=== PATIENT | female | born 1955 | race Caucasian/White ===

== ENCOUNTER 2016-05-26 17:11 | Emergency (ER) | payer OTHER ==
[2015-04-20 10:58] VITALS: BMI 27.1
[~2016-05-26 17:11] MED LIST: ALDACTONE25 MG PO; AMITRIPTYLINE H50 MG PO; CYMBALTA30 MG PO; DILANTIN100 MG PO; FLUTICASONE PRO16 GM NASAL; HYDROCODON-ACE1 EAC7 PO; K-TAB10 MEQ PO; NICODERM C1 PATCH .1 TRANSDERM; NORVASC10 MG PO; PRAVASTATIN SOD10 MG PO; PROTONIX40 MG PO; SINGULAIR10 MG PO; TERAZOSIN HCL2 MG PO; XANAX1 MG PO; ZANAFLEX4 MG PO
[2016-05-26 18:02] LABS: BASOPHILS 0.1 % (0.0-2.0); EOSINOPHILS 0.1 % (0-7); HEMOGLOBIN 16.9 g/dL (12-16); IMMATURE GRANULOCYTES 0.5 % (0-5); LYMPHOCYTES 16.3 % (15-50); MCH 29.5 pg (26.0-34.0); MCHC 35.2 g/dL (31.0-37.0); MCV 83.9 fL (80.0-100.0); MEAN PLATELET VOLUME 10.2 fL (7.4-10.4); MONOCYTES 8.1 % (2-11); NEUTROPHILS 74.9 % (40-80); RBC 5.72 10x6/uL (4.00-5.40); RDW 12.9 % (11.5-14.5); WBC 18.8 10x3/uL (4.8-10.8)
[2016-05-26 18:08] LABS: PLATELET COUNT 357 10x3/uL (130-400)
[2016-05-26 18:17] LABS: ALBUMIN 5.2 g/dL (3.4-5.0); ANION GAP 18.6 mmol/L (8-16); BILIRUBIN - TOTAL 0.49 mg/dL (0.2-1.3); CALCIUM 10.9 mg/dL (8.5-10.1); CARBON DIOXIDE 31.7 mmol/L (21.0-32.0); CREATININE - SERUM 2.1 mg/dL (0.6-1.3); POTASSIUM - SERUM 3.3 mmol/L (3.5-5.1); PROTEIN - SERUM 9.8 g/dL (6.4-8.2)
[2016-05-26 20:57] LABS: UDS - AMPHET POSITIVE QUAL (NEGATIVE); UDS - BARB NEGATIVE QUAL (NEGATIVE); UDS - BENZO POSITIVE QUAL (NEGATIVE); UDS - COCAINE NEGATIVE QUAL (NEGATIVE); UDS - METH NEGATIVE QUAL (NEGATIVE); UDS - OPIATE NEGATIVE QUAL (NEGATIVE); UDS - PCP NEGATIVE QUAL (NEGATIVE); UDS - THC NEGATIVE QUAL (NEGATIVE)
[2016-05-26 21:13] LABS: APPEARANCE CLEAR (CLEAR); COLOR YELLOW (YELLOW); SPECIFIC GRAVITY 1.015 (1.005-1.020)
[2016-05-26 21:14] LABS: BILIRUBIN NEGATIVE (NEGATIVE); GLUCOSE NEGATIVE (NEGATIVE); KETONE NEGATIVE (NEGATIVE); LEUKOCYTE ESTERASE NEGATIVE (NEGATIVE); NITRITE NEGATIVE (NEGATIVE); PROTEIN 1+ mg/dL (NEGATIVE); UROBILINOGEN NORMAL (NORMAL)
== END 2016-05-26 22:47 | disposition home or self-care (01) ==
LOC: D.ER 17:11
PROVIDERS: Emergency Medicine; Physician Assistant Medical
DX: R19.7 Diarrhea, unspecified (principal); R11.10 Vomiting, unspecified; F41.9 Anxiety disorder, unspecified; F17.200 Nicotine dependence, unspecified, uncomplicated

== ENCOUNTER → 2016-08-21 09:17 | Outpatient (CLI) | payer MEDICARE, OTHER ==
[2015-04-20 10:58] VITALS: BMI 27.1
== END | disposition home or self-care (01) ==
LOC: D.NM 09:15
DX: E83.52 Hypercalcemia (principal)

== ENCOUNTER 2016-10-28 17:39 | Observation (INO) | payer MEDICARE ==
[~2016-10-28] VITALS: Ht 160 cm; Wt 70.5 kg
[2016-10-28 18:19] LABS: APPEARANCE CLEAR (CLEAR); BILIRUBIN NEGATIVE (NEGATIVE); COLOR COLORLESS (YELLOW); GLUCOSE NEGATIVE (NEGATIVE); KETONE NEGATIVE (NEGATIVE); LEUKOCYTE ESTERASE NEGATIVE (NEGATIVE); NITRITE NEGATIVE (NEGATIVE); PROTEIN NEGATIVE (NEGATIVE); UROBILINOGEN NORMAL (NORMAL)
[2016-10-28 19:16] LABS: BASOPHILS 0.1 % (0-2); EOSINOPHILS 1.2 % (0-7); HEMATOCRIT 36.8 % (36.0-48.0); HEMOGLOBIN 12.4 g/dL (12-16); IMMATURE GRANULOCYTES 0.2 % (0-5); LYMPHOCYTES 28.7 % (15-50); MCH 27.3 pg (26.0-34.0); MCHC 33.7 g/dL (31.0-37.0); MCV 81.1 fL (80.0-100.0); MEAN PLATELET VOLUME 9.8 fL (7.4-10.4); MONOCYTES 7.2 % (2-11); NEUTROPHILS 62.6 % (40-80); PLATELET COUNT 268 10x3/uL (130-400); RBC 4.54 10x6/uL (4.00-5.40)
[2016-10-28 19:29] LABS: ALBUMIN 4.5 g/dL (3.4-5.0); ALKALINE PHOSPHATASE 95 U/L (46-116); ALT (SGPT) 27 U/L (10-68); BILIRUBIN - TOTAL 0.42 mg/dL (0.2-1.3); CALC OSMOLALITY 253 mosm/kg (275-300); CALCIUM 9.5 mg/dL (8.5-10.1); CHLORIDE - SERUM 93 mmol/L (98-107); CREATININE - SERUM 0.8 mg/dL (0.6-1.3); GLUCOSE 93 mg/dL (74-106); POTASSIUM - SERUM 3.3 mmol/L (3.5-5.1); PROTEIN - SERUM 7.8 g/dL (6.4-8.2); SODIUM 127 mmol/L (136-145); UREA NITROGEN 9 mg/dL (7-18); eGFR NON AFRICAN AMERICAN 77 mL/min (90-120)
[2016-10-29] VITALS: BP 193/107
--- NOTE | 2016-10-29 00:25 | NUR ---
RECEIVED PT FROMER VIA W/C AAOX4 RESP UNLABORED SKIN W/D COLOR WNL IV OF NS PATENT TO LT HAND WITHOUT DIFFICULTY OCCLUSIVE DRSG INTACT SITE FREE OF REDNESS OR EDEMA NAD NOTED WILL CONTINUE TO MONITOR
[2016-10-29 00:29] VITALS: BP 193/107; Ht 160 cm; Wt 70.5 kg
--- NOTE | 2016-10-29 03:07 | NUR ---
RESTING QUIELTY EYES CLOSED RESP UNLABORED NAD NOTED
[2016-10-29 04:00] VITALS: BP 122/68
--- NOTE | 2016-10-29 07:21 | NUR ---
PT IN BED RESTING. EVEN AND UNLABORED RESPIRATIONS NOTED. WILL CONTINUE TO MONITOR.
[2016-10-29 08:34] VITALS: BP 131/74
--- NOTE | 2016-10-29 09:47 | NUR ---
PT STATES THAT HER "EYE IS SHRINKING" SHE ALSO STATES "THIS EYE (LEFT EYE) IS NICE AND PLUMP, BUT THIS EYE (RIGHT EYE) IS NOTHING BUT MUSH." UPON EXAMINATION NO SHRINKING NOTED. EYES EQUAL BILATERALLY. WILL CONTINUE TO MONITOR.
[2016-10-29 12:04] VITALS: BP 154/76
[2016-10-29 12:12] LABS: ANION GAP 9.8 mmol/L (8-16); CALCIUM 9.1 mg/dL (8.5-10.1); CARBON DIOXIDE 30.1 mmol/L (21.0-32.0); CREATININE - SERUM 1.1 mg/dL (0.6-1.3); POTASSIUM - SERUM 3.9 mmol/L (3.5-5.1)
[2016-10-29 16:00] VITALS: BP 134/91
--- NOTE | 2016-10-29 18:46 | NUR ---
Patient Name: JAQUAN GARCIA Admission Status: ER Accout number: [id number] Admission Date: 10-28-2016 : 1955 Admission Diagnosis: Attending: CELIO Current LOS: 1 Anticipated DC Date: 10-29-2016 Planned Disposition: Home Primary Insurance: [employer] ADV Discharge Planning Comments: CM received MD and Primary Nurse referral for assistance. CM spoke with patient. She lives with her parents and states she would like to find her own place. She is over-resource for [facility] Housing. CM discussed needs. Gave her contacts for assistance: 1) [facility]- [phone] 2) [facility]- [phone] 3)[facility]-[phone] 4) [facility]- [phone] 5/ [facility]- [phone] Patient lost her in 2012, Also had back trouble secondary to "ruptured disc" when moving from [place] to [place]. She presently lives with her parents. She does have anxiety issues. Receives $1100.00 monthly. Has "car note" $375.00 monthly, car insurance $200 monthly and rent to parents $300 monthly. Has 2 daughters living out of state one in [place] and one in [place]. PCP- DR Lucie ALVARES - DR Mcfadden Renal- DR Hutchins DME- cane only Three steps to enter parents home however they have a ramp to enter Pharmacy- [facility] Patient will accept [facility]. She admits she needs help with medications. She was given contact names, addresses and contact phone numbers for resources to assist w/ anxiety & housing. She denies any additional concerns and is pleased with information provided. Her father will provide transportation to home. She states she can afford her medications. CM spoke with her primary nurse, Pablo to update. [facility] [employer] Cleaner: Kathy Singleton
--- NOTE | 2016-10-29 19:02 | NUR ---
PT RECEIVED DISCHARGE INSTRUCTIONS AND LEFT FLOOR AT THIS TIME
== END 2016-10-29 19:04 | disposition home or self-care (01) ==
LOC: D.ER 17:39 → OBSVTIME 21:02 → D.M2 21:02
PROVIDERS: Emergency Medicine; Physician Assistant Medical; ADMIT Family Medicine
DX: I10 Essential (primary) hypertension (principal); E87.1 Hypo-osmolality and hyponatremia; E87.6 Hypokalemia; M54.5 Low back pain; K21.9 Gastro-esophageal reflux disease without esophagitis; F41.9 Anxiety disorder, unspecified; F32.9 Major depressive disorder, single episode, unspecified; Z87.891 Personal history of nicotine dependence